=== PATIENT | male | born 1980 | race Caucasian/White ===

== ENCOUNTER 2017-03-23 20:27 | Emergency (ER) | payer OTHER ==
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
[2017-03-23 20:51] VITALS: BP 148/79; PULSE 73; TEMP 97.8; BMI 26.6
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
== END 2017-03-23 21:51 | disposition home or self-care (01) ==
LOC: JERFT 20:27
DX: S83.8X1A Sprain of other specified parts of right knee, initial encounter (principal); S80.01XA Contusion of right knee, initial encounter; V43.62XA Car passenger injured in collision with other type car in traffic accident, initial encounter; Y92.488 Other paved roadways as the place of occurrence of the external cause; Y93.89 Activity, other specified; Y99.8 Other external cause status
CPT/HCPCS: 73560-TC-RT; 99281-25